=== PATIENT | female | born 1965 | race American Indian/Alaskan Native ===

== ENCOUNTER 2017-08-10 12:41 | Day surgery (SDC) | payer MEDICARE ==
[~2017-08-10 12:41] MED LIST: NACL 0.9% 1000 ML 1,000 ML IV SCH
--- NOTE | 2017-08-10 14:07 | Anesthesia Consultation ---
Anesthesia Consult and Med Hx - Airway Anesthetic Teeth Evaluation: Good ROM Head & Neck: Adequate Mental/Hyoid Distance: Adequate Intubation Access Assessment: Probably Good - Pulmonary Exam CTA: Yes - Cardiac Exam Cardiac Exam: No Murmur - Pre-Operative Health Status ASA Pre-Surgery Classification: ASA3 Proposed Anesthetic Plan: MAC - Pulmonary Hx Smoking: No Hx Asthma: No Hx Respiratory Symptoms: No SOB: No COPD: No Home Oxygen Therapy: No Hx Pneumonia: No Hx Sleep Apnea: No - Cardiovascular System Hx Hypertension: Yes - Central Nervous System Hx Back Pain: Yes
--- NOTE | 2017-08-10 14:07 | Anesthesia Day of Surgery ---
Anesthesia Day of Surgery - Day of Surgery Patient is NPO: Yes Beta Blockers: No
[2017-08-10] MEDS ORDERED: WATER FOR IRRIG STERILE IR ONE (14:28)
[2017-08-10] MEDS ORDERED: XYLOCAINE MPF 2% ONE (14:30)
[2017-08-10] MEDS ORDERED: DIPRIVAN 10 MG/ML IV ONE ×2 (14:31→14:46)
--- NOTE | 2017-08-10 15:27 | Discharge Summary ---
Short Stay Discharge Plan Activity: advance as tolerated Weight Bearing Status: Non-Weight Bearing Diet: regular Additional Instructions: Post Sedation D/C Instructions When you return home you may resume your regular diet unless otherwise directed. -Go directly home from the hospital and rest quietly. You may resume normal activities tomorrow. -Do NOT drive, return to work, operate any machinery or make any important personal or business decisions today. -Do NOT drink any alcohol or take nerve or sleeping drugs. They add to the effects of the medicine still present in your body. Follow up with Dr. Deleon in 2 weeks to obtain pathology results and treatment plan. Follow up with: MILDRED LIANG MD [Primary Care Provider] - 7 Days
--- NOTE | 2017-08-10 15:27 | Operative Report ---
Operative Report Operative Report: Date of procedure: 08/10/2017 Procedure: Colonoscopy with multiple Hot Biopsy Polypectomies. Attending physician: Jeffery Deleon MD Mat Repairer: Jeffery Deleon MD Indication: Patient is a 52-year-old female who presents for screening colonoscopy. This colonoscopy serves to evaluate patient so that treatment may be directed based on the findings. Consent: Informed consent was obtained after advising the patient and family regarding nature of this procedure, its indications, potential benefits as well as possible complications including but not limited to bleeding perforation and adverse reaction to medication, infection as well as other cardiopulmonary complications. An informed written and verbal consent was then obtained after due opportunity was provided for questions and answers. Monitoring: Patient was monitored continuously with pulse oximetry and electrocardiographic recordings as well as blood pressure recordings. Vital signs remained stable throughout this procedure with no untoward events. Preoperative assessment: Patient was assessed immediately prior to this procedure for capacity to tolerate monitored anesthesia care and moderate sedation as well as general anesthesia. Patient's ASA classification is 2, Mallampati class is 2, Hyomental distance is 3. Instrument: OneBuckResumen video colonoscope Medications: Propofol given intravenously in divided doses. For details please refer to anesthesia records. Description of procedure: Patient was placed in the left lateral decubitus position after achieving sedation, a digital rectal examination was performed following which the colonoscope was introduced into the anal verge and advanced to the cecum which was identified by the cecal valve, the appendiceal orifice, as well as by the cecal strap and direct transillumination. The colonoscope was subsequently withdrawn with careful inspection of all mucosal surfaces. Patient tolerated this procedure well and was subsequently taken to the recovery room. The following findings were noted. Findings: Patient had a decent colonoscopic preparation. The withdrawal time from the cecum to the anal verge was greater than 12 minutes.Patient had a proximal ascending colon which was removed via hot biopsy polypectomy and retrieved it measured about 5 mm and was flat.. There was another polyp in the transverse colon measuring approximately 6 mm which was sessile. It again was removed by hot biopsy polypectomy and retrieved. There a few diverticula seen in the sigmoid and descending colon. The rest of the examination to the cecum was normal. On the retroflexed view of the anal verge, patient had internal hemorrhoids. Impression: Ascending colon polyp status post hot biopsy polypectomy. Transverse colon polyp status post hot biopsy polypectomy. Diverticula disease of the colon. Internal hemorrhoids. Plan: Follow pathology report. High-fiber diet. Repeat colonoscopy in 5 years if polyp is adenomatous.
[2017-08-10 15:33] VITALS: BP 161/84
== END 2017-08-10 12:42 | disposition home or self-care (01) ==
LOC: GIO 12:41
PROVIDERS: ATTEND Internal Medicine Gastroenterology
DX: D12.2 Benign neoplasm of ascending colon (principal); D12.4 Benign neoplasm of descending colon; K57.30 Diverticulosis of large intestine without perforation or abscess without bleeding; K64.8 Other hemorrhoids; I10 Essential (primary) hypertension; E66.9 Obesity, unspecified; Z68.35 Body mass index [BMI] 35.0-35.9, adult; Z85.3 Personal history of malignant neoplasm of breast; Z88.1 Allergy status to other antibiotic agents; Z90.711 Acquired absence of uterus with remaining cervical stump; Z98.890 Other specified postprocedural states; Z79.899 Other long term (current) drug therapy
CPT/HCPCS: 45384; 88305; J2704; J7030

== ENCOUNTER 2021-03-19 13:38 | Emergency (ER) | payer MEDICARE ==
--- NOTE | 2021-03-19 14:18 | Emergency Department Report ---
ED Back Pain/Injury HPI - General Chief Complaint: Back Pain/Injury Stated Complaint: back pain Time Seen by Provider: 03/19/21 14:11 Source: patient Limitations: No Limitations - History of Present Illness Initial Comments: Patient presents with back spasms. She has been having intermittent back pain for several days. The pain seem to be worse. Symptoms the pain is right-sided. Symptoms left-sided. Today it is right-sided. She has noticed some intermittent knots in her back as well. There is no trauma. She denies numbness or tingling in the arms or legs. She has no fever chills but there is no cough congestion. She has had no incontinence. Patient was here primarily because of the pain. She has not taken anything for this as of yet. - Related Data Previous Rx's Medication Instructions Recorded Last Taken Type Meclizine [Antivert] 25 mg PO TID #30 tablet 12/30/16 Unknown Rx Sulfamethoxazole/Trimethoprim 1 each PO BID #20 tablet 12/30/16 Unknown Rx [Bactrim DS TAB] Lidocaine [Lidoderm] 1 each TP DAILY #30 patch 03/19/21 Unknown Rx Metaxalone [Skelaxin] 800 mg PO TID #9 tablet 03/19/21 Unknown Rx Allergies Allergy/AdvReac Type Severity Reaction Status Date / Time amoxicillin Allergy Rash Verified 08/10/17 06:47 ED Review of Systems ROS: Stated complaint: back pain Other details as noted in HPI Comment: All other systems reviewed and negative Constitutional: denies: fever Eyes: denies: eye pain ENT: denies: throat pain Respiratory: denies: cough Cardiovascular: denies: chest pain Endocrine: denies: unexplained weight loss Gastrointestinal: denies: abdominal pain Genitourinary: denies: dysuria Musculoskeletal: as per HPI Skin: denies: rash Neurological: denies: headache Hematological/Lymphatic: denies: easy bruising ED Past Medical Hx - Past Medical History Previous Medical History?: Yes Hx Hypertension: Yes Hx Asthma: No Hx COPD: No - Surgical History Past Surgical History?: Yes Additional Surgical History: hysterectomy, lumpectomy rt breast - Family History Family history: hypertension - Social History Smoking Status: Never Smoker Substance Use Type: None, Alcohol - Medications Home Medications: Home Medications Medication Instructions Recorded Confirmed Last Taken Type Meclizine [Antivert] 25 mg PO TID #30 tablet 12/30/16 Unknown Rx Sulfamethoxazole/Trimethoprim 1 each PO BID #20 tablet 12/30/16 Unknown Rx [Bactrim DS TAB] Lidocaine [Lidoderm] 1 each TP DAILY #30 patch 03/19/21 Unknown Rx Metaxalone [Skelaxin] 800 mg PO TID #9 tablet 03/19/21 Unknown Rx ED Physical Exam - General Limitations: No Limitations, Other (Pulse ox noted and normal) General appearance: alert, in no apparent distress - Head Head exam: Present: atraumatic, normocephalic - Eye Eye exam: Present: normal appearance, EOMI - ENT ENT exam: Present: normal orophraynx, normal external ear exam - Neck Neck exam: Present: normal inspection. Absent: meningismus - Respiratory Respiratory exam: Present: normal lung sounds bilaterally. Absent: respiratory distress - Cardiovascular Cardiovascular Exam: Present: regular rate, normal rhythm - GI/Abdominal GI/Abdominal exam: Present: soft. Absent: tenderness - Extremities Exam Extremities exam: Present: normal capillary refill - Back Exam Back exam: Present: muscle spasm (Right paraspinous thoracic area). Absent: CVA tenderness (R), CVA tenderness (L) - Neurological Exam Neurological exam: Present: alert, oriented X3, normal gait. Absent: motor sensory deficit - Psychiatric Psychiatric exam: Present: normal affect, normal mood - Skin Skin exam: Present: warm, dry ED Course Vital Signs 03/19/21 03/19/21 14:08 14:38 Temperature 98.4 F Pulse Rate 100 H 88 Respiratory 16 14 Rate Blood Pressure 147/81 146/80 [Left] O2 Sat by Pulse 100 100 Oximetry ED Medical Decision Making - Medical Decision Making Patient presented with muscle spasms in the back. This is nontraumatic. She was treated symptomatically and referred. There is no CVA tenderness to suggest Shawn. She has no fevers or chills or neurologic symptoms suggestive of cord injury or cauda equina. Critical Care Time: No Critical care attestation.: If time is entered above; I have spent that time in minutes in the direct care of this critically ill patient, excluding procedure time. ED Disposition Clinical Impression: Back muscle spasm Disposition: HOME / SELF CARE / HOMELESS Is pt being admited?: No Condition: Stable Instructions: Muscle Cramps and Spasms, Back Injury Prevention Additional Instructions: LIMIT LIFTING. USE ICE AT HOME. SEE YOUR DOCTOR FOR URINARY PROBLEMS. Prescriptions: Lidocaine [Lidoderm] 1 each TP DAILY #30 patch Metaxalone [Skelaxin] 800 mg PO TID #9 tablet Referrals: PRIMARY CARE, [Primary Care Provider] - 3-5 Days
[2021-03-19 14:40] VITALS: BP 146/80
== END 2021-03-19 14:38 | disposition home or self-care (01) ==
LOC: ED 13:38
DX: M62.830 Muscle spasm of back (principal); I10 Essential (primary) hypertension; Z88.0 Allergy status to penicillin; Z90.710 Acquired absence of both cervix and uterus; Z98.890 Other specified postprocedural states
CPT/HCPCS: 99282